=== PATIENT | male | born 1955 | race Two or more races ===

== ENCOUNTER 2017-01-29 05:18 | Emergency (ER) | payer MEDICAID ==
[~2017-01-29] VITALS: Ht 157.5 cm; Wt 85.3 kg
[2017-01-29 06:43] LABS: Basophils # (auto) 0.1 uL; Basophils % (auto) 1.8 % (0.0-2.0); Eosinophils # (auto) 0.3 uL; Eosinophils % (auto) 4.2 % (0.0-7.0); Hematocrit 34.5 % (41.0-53.0); Hemoglobin 11.7 g/dL (13.5-17.5); Lymphocytes # (auto) 0.8 uL; Lymphocytes % (auto) 12.8 % (10.0-50.0); Mean Corpuscular Hemoglobin 32.7 pg (28.0-32.0); Mean Corpuscular Hgb Conc. 33.9 g/dL (32.0-36.0); Mean Corpuscular Volume 96.6 fL (80.0-100.0); Mean Platelet Volume 8.7 fL (6.9-10.8); Monocytes # (auto) 0.3 uL; Monocytes % (auto) 4.8 % (0.0-12.0); Neutrophils # (auto) 4.8 uL; Neutrophils % (auto) 76.4 % (37.0-80.0); Nucleated Red Blood Cells % 0.1 %; Platelet Count (auto) 120 10^3/uL (140-450); White Blood Cell 6.3 10^3/uL (4.4-10.8)
[2017-01-29 07:01] LABS: Albumin 3.4 g/dL (3.4-5.0); Anion Gap 11 (5-15); Aspartate Aminotransferase 35 U/L (15-37); BUN/Creatinine Ratio 5.7; Blood Urea Nitrogen 51 mg/dL (7-18); Calcium 8.6 mg/dL (8.5-10.1); Carbon Dioxide 25 mmol/L (21-32); Chloride 99 mmol/L (98-107); GFR African American 8 mL/min; GFR Non-African American 6 mL/min; Glucose 169 mg/dL (74-106); Potassium 4.1 mmol/L (3.5-5.1); Sodium 135 mmol/L (136-145)
[2017-01-29 07:07] LABS: Alkaline Phosphatase 69 U/L (45-117); Bilirubin, Total 0.5 mg/dL (0.2-1.0); Total Protein 7.7 g/dL (6.4-8.2)
[2017-01-29 08:22] VITALS: BP 93/47
[2017-01-29 08:28] LABS: Temperature: 22.8 C (20.0-25.0)
== END 2017-01-29 09:40 | disposition home or self-care (01) ==
LOC: EDBD 05:18 → EDSEX 05:21 → ER 05:21
DX: R41.82 Altered mental status, unspecified (principal); E11.649 Type 2 diabetes mellitus with hypoglycemia without coma; G93.41 Metabolic encephalopathy; N18.9 Chronic kidney disease, unspecified; I12.9 Hypertensive chronic kidney disease with stage 1 through stage 4 chronic kidney disease, or unspecified chronic kidney disease; D63.8 Anemia in other chronic diseases classified elsewhere; E11.22 Type 2 diabetes mellitus with diabetic chronic kidney disease; E87.70 Fluid overload, unspecified; Z79.4 Long term (current) use of insulin; Z99.2 Dependence on renal dialysis
CPT/HCPCS: 36415; 80053; 82962; 83880; 84484; 85025; 93005

== ENCOUNTER 2018-06-10 15:54 | Inpatient (IN) | payer MEDICAID | END 2018-06-12 21:29 | disposition home or self-care (01) | LOC: TELE-EAST 22:24 → ER 15:54 → TELE 20:55 → TELE-EAST 22:24 | DX: R55 Syncope and collapse (principal); E11.22 Type 2 diabetes mellitus with diabetic chronic kidney disease; E11.649 Type 2 diabetes mellitus with hypoglycemia without coma; I12.0 Hypertensive chronic kidney disease with stage 5 chronic kidney disease or end stage renal disease; N18.6 End stage renal disease; I25.9 Chronic ischemic heart disease, unspecified; Z99.2 Dependence on renal dialysis ==

== ENCOUNTER 2019-03-07 20:51 | Emergency (ER) | payer MEDICAID ==
[~2019-03-07] VITALS: Ht 160 cm; Wt 72.6 kg
[~2019-03-07 20:51] MED LIST: ASPI-404 PO; CALC667C PO; FOLI1TAB6 PO; INSU70IN3 SC; SUCR5CHW PO
[2019-03-07 22:15] LABS: Basophils # (auto) 0.1 uL; Basophils % (auto) 2.6 % (0.0-2.0); Eosinophils # (auto) 0.3 uL; Eosinophils % (auto) 6.5 % (0.0-7.0); Hematocrit 31.9 % (41.0-53.0); Lymphocytes # (auto) 1.2 uL; Lymphocytes % (auto) 24.2 % (10.0-50.0); Mean Corpuscular Hemoglobin 32.2 pg (28.0-32.0); Mean Corpuscular Hgb Conc. 34.6 g/dL (32.0-36.0); Monocytes # (auto) 0.5 uL; Monocytes % (auto) 9.9 % (0.0-12.0); Neutrophils # (auto) 2.8 uL; Neutrophils % (auto) 56.8 % (37.0-80.0); Platelet Count (auto) 100 10^3/uL (140-450); Red Blood Cells 3.43 10^6/uL (4.5-5.90); Red Cell Distribution Width 13.5 % (11.8-14.3)
[2019-03-07 22:36] LABS: INR 1.11 (0.9-1.15); Partial Thromboplastin Time 26.6 sec (23.64-32.05)
[2019-03-07 22:37] LABS: Potassium 3.6 mmol/L (3.5-5.1)
[2019-03-07 22:46] LABS: Albumin 3.5 g/dL (3.4-5.0); Bilirubin, Total 0.7 mg/dL (0.2-1.0); Calcium 9.2 mg/dL (8.5-10.1); Magnesium 2.2 mg/dL (1.6-2.6); Total Protein 7.7 g/dL (6.4-8.2)
[2019-03-08] MEDS ORDERED: ACETAMINOPHEN 325 MG TAB PO ONE (00:15)
[2019-03-08] MEDS ORDERED: FUROSEMIDE 40 MG/4 ML VIAL IV ONE (00:45)
[2019-03-08] MEDS ORDERED: cefTRIAXone 1GM/50ML D5W 50 ML IV ONE (01:30)
[2019-03-08] MEDS ORDERED: AZITHROMYCIN 250 MG TAB PO ONE (01:30)
[2019-03-08] MEDS ORDERED: ALBUTEROL SULF 2.5 MG/0.5ML(0.5%) NEB SOLN NEB ONE (01:30)
[2019-03-08] MEDS ORDERED: IPRATROPIUM BROM 0.5 MG/2.5ML INH SOL NEB ONE (01:30)
[2019-03-08 02:01] VITALS: BP 183/87
== END 2019-03-08 04:31 | disposition home or self-care (01) ==
LOC: ER 20:56
DX: J06.9 Acute upper respiratory infection, unspecified (principal); E11.22 Type 2 diabetes mellitus with diabetic chronic kidney disease; I12.0 Hypertensive chronic kidney disease with stage 5 chronic kidney disease or end stage renal disease; N18.6 End stage renal disease; Z86.73 Personal history of transient ischemic attack (TIA), and cerebral infarction without residual deficits
CPT/HCPCS: 36415; 71045; 80053; 82962; 83735; 83880; 84484; 85025; 85610; 85730; 93005; 94640; 96365; 96375; 99284; J0696; J1940; J7611; J7644

== ENCOUNTER 2021-06-28 16:14 | Inpatient (IN) | payer MEDICAID ==
[~2021-06-28] VITALS: Ht 162.6 cm; Wt 58.9 kg
[~2021-06-28 16:14] MED LIST changes: -ASPI-404 PO; +ASPI-543 PO
[2021-06-28 18:41] LABS: Basophils # (auto) 0.1 10 ^3/uL (0-0.2); Eosinophils # (auto) 0 10 ^3/uL (0-0.8); Hemoglobin 11.7 g/dL (13.5-17.5); Lymphocytes # (auto) 0.6 10 ^3/uL (0.4-5.4); Lymphocytes % (auto) 10.1 % (10.0-50.0); Mean Corpuscular Hemoglobin 29.8 pg (28.0-32.0); Mean Corpuscular Hgb Conc. 33.4 g/dL (32.0-36.0); Mean Corpuscular Volume 89.5 fL (80.0-100.0); Monocytes # (auto) 0.6 10 ^3/uL (0-1.3); Monocytes % (auto) 9.8 % (0.0-12.0); Neutrophils # (auto) 4.6 10 ^3/uL (1.6-8.6); Neutrophils % (auto) 79.1 % (37.0-80.0); Nucleated Red Blood Cells % 0.1 %; Red Blood Cells 3.91 10^6/uL (4.5-5.90); Red Cell Distribution Width 15.1 % (11.8-14.3); White Blood Cell 5.8 10^3/uL (4.4-10.8)
[2021-06-28 19:03] LABS: Albumin 3.1 g/dL (3.4-5.0); BUN/Creatinine Ratio 4.7; Calcium 8.9 mg/dL (8.5-10.1); Potassium 3.7 mmol/L (3.5-5.1)
[2021-06-28 19:06] LABS: Bilirubin, Total 1.1 mg/dL (0.2-1.0); Total Protein 8.1 g/dL (6.4-8.2)
[2021-06-28] MEDS ORDERED: HYDROcodone-ACET 5/325MG TAB PO PRN (22:15)
[2021-06-28] MEDS ORDERED: ACETAMINOPHEN 325 MG TAB PO PRN (22:15)
[2021-06-28] MEDS ORDERED: DEXTROSE (50%) 50ML SYRG IV PRN (22:15)
[2021-06-28] MEDS ORDERED: ONDANSETRON HCL 4 MG/2 ML VIAL IV PRN (22:15)
[2021-06-28] MEDS ORDERED: MORPHINE SULFATE INJECTION 2 MG/ML SYRG IV PRN (23:30)
[2021-06-28] MEDS ORDERED: NITROGLYCERIN 0.4 MG SL TAB SL PRN (23:30)
[2021-06-29] VITALS (7 sets, daily range): BP systolic 112–141; BP diastolic 52–77
[2021-06-29] MEDS: LACTULOSE 20Gm/30ML SOLN PO SCH ×5 (02:15→17:23)
[2021-06-29] MEDS: SODIUM CHLOR 0.9% PF (SALINE LOCK) 10ML VIAL/SYR IV SCH ×3 (05:20→22:05)
[2021-06-29] MEDS: InsuLIN REG 1unit/0.01ml Soln (100units/ml) SC SCH ×3 (06:03→17:21)
[2021-06-29] MEDS: ACCU-CHEK COMFORT CURVE STRIP VI SCH ×4 (06:03→22:06)
[2021-06-29 06:39] LABS: Basophils # (auto) 0.1 10 ^3/uL (0-0.2); Basophils % (auto) 1.1 % (0.0-2.0); Eosinophils # (auto) 0.1 10 ^3/uL (0-0.8); Eosinophils % (auto) 1.3 % (0.0-7.0); Hematocrit 33.9 % (41.0-53.0); Hemoglobin 11.4 g/dL (13.5-17.5); Lymphocytes # (auto) 0.8 10 ^3/uL (0.4-5.4); Mean Corpuscular Hemoglobin 30.3 pg (28.0-32.0); Mean Corpuscular Hgb Conc. 33.8 g/dL (32.0-36.0); Mean Corpuscular Volume 89.7 fL (80.0-100.0); Monocytes # (auto) 0.6 10 ^3/uL (0-1.3); Monocytes % (auto) 13.6 % (0.0-12.0); Neutrophils # (auto) 3.2 10 ^3/uL (1.6-8.6); Nucleated Red Blood Cells % 0.1 %; Red Blood Cells 3.78 10^6/uL (4.5-5.90); Red Cell Distribution Width 14.9 % (11.8-14.3); White Blood Cell 4.7 10^3/uL (4.4-10.8)
[2021-06-29 06:50] LABS: Albumin 2.7 g/dL (3.4-5.0); Calcium 8.8 mg/dL (8.5-10.1); Potassium 3.7 mmol/L (3.5-5.1)
[2021-06-29 06:53] LABS: Bilirubin, Total 0.9 mg/dL (0.2-1.0); Total Protein 7.4 g/dL (6.4-8.2)
[2021-06-29] MEDS: ASPirin 81 mg TAB PO SCH (09:31)
[2021-06-29] MEDS: SEVELAMER 800 MG TAB PO SCH ×3 (09:31→17:23)
[2021-06-29] MEDS: B-COMPLEX W/ C & FOLIC ACID(NEPHROVITE TAB) PO SCH (09:32)
[2021-06-29] MEDS: FAMOTIDINE (10MG/ML) 2ML VL IV SCH (09:32)
[2021-06-29] MEDS ORDERED: HEPARIN SODIUM (PORCINE) 5000 UNITS/ML 1ML VIAL SC SCH (10:00)
[2021-06-29] MEDS ORDERED: InsuLIN REG 1unit/0.01ml Soln (100units/ml) SC SCH (22:00)
[2021-06-29] MEDS: METOPROLOL TARTRATE 25 MG TAB PO SCH (22:07)
[2021-06-30] MEDS: InsuLIN REG 1unit/0.01ml Soln (100units/ml) SC SCH ×4 (06:06→22:15)
[2021-06-30] MEDS: ACCU-CHEK COMFORT CURVE STRIP VI SCH ×4 (06:06→22:18)
[2021-06-30] MEDS: SODIUM CHLOR 0.9% PF (SALINE LOCK) 10ML VIAL/SYR IV SCH ×2 (06:06→15:45)
[2021-06-30] MEDS ORDERED: DEXTROSE (50%) 50ML SYRG IV PRN (08:00)
[2021-06-30 08:34] LABS: Cholesterol 92 mg/dL (< 200); HDL Cholesterol 29 mg/dL (40-59); LDL Cholesterol 49 mg/dL (< 100); Triglycerides 93 mg/dL (< 150)
[2021-06-30] MEDS: SEVELAMER 800 MG TAB PO SCH ×3 (08:39→18:32)
[2021-06-30] MEDS: B-COMPLEX W/ C & FOLIC ACID(NEPHROVITE TAB) PO SCH (08:39)
[2021-06-30] MEDS: METOPROLOL TARTRATE 25 MG TAB PO SCH ×2 (08:39→22:18)
[2021-06-30] MEDS: ASPirin 81 mg TAB PO SCH (08:40)
[2021-06-30 09:00] VITALS: BP 127/70
[2021-06-30 12:52] VITALS: BP 124/75
[2021-06-30 17:18] VITALS: BP 127/82
[2021-06-30 20:00] VITALS: BP 127/70
[2021-06-30 22:00] VITALS: BP 119/68
[2021-07-01] MEDS: SODIUM CHLOR 0.9% PF (SALINE LOCK) 10ML VIAL/SYR IV SCH ×4 (04:46→21:56)
[2021-07-01 05:00] VITALS: BP 110/59
[2021-07-01] MEDS: InsuLIN REG 1unit/0.01ml Soln (100units/ml) SC SCH ×4 (05:15→21:56)
[2021-07-01] MEDS: ACCU-CHEK COMFORT CURVE STRIP VI SCH ×4 (05:17→21:56)
[2021-07-01] MEDS: SEVELAMER 800 MG TAB PO SCH ×3 (08:00→18:30)
[2021-07-01 08:30] VITALS: BP 117/63
[2021-07-01 08:53] VITALS: BP 118/63
[2021-07-01] MEDS: B-COMPLEX W/ C & FOLIC ACID(NEPHROVITE TAB) PO SCH ×2 (09:32→11:18)
[2021-07-01] MEDS: METOPROLOL TARTRATE 25 MG TAB PO SCH ×3 (09:32→22:03)
[2021-07-01] MEDS: ASPirin 81 mg TAB PO SCH ×2 (09:32→11:18)
[2021-07-01 10:42] LABS: Basophils # (auto) 0.1 10 ^3/uL (0-0.2); Basophils % (auto) 1.2 % (0.0-2.0); Eosinophils # (auto) 0.3 10 ^3/uL (0-0.8); Eosinophils % (auto) 4.5 % (0.0-7.0); Hematocrit 35.9 % (41.0-53.0); Lymphocytes # (auto) 0.8 10 ^3/uL (0.4-5.4); Lymphocytes % (auto) 13.4 % (10.0-50.0); Mean Corpuscular Hgb Conc. 33.4 g/dL (32.0-36.0); Mean Corpuscular Volume 89.8 fL (80.0-100.0); Monocytes # (auto) 0.5 10 ^3/uL (0-1.3); Monocytes % (auto) 8.8 % (0.0-12.0); Neutrophils # (auto) 4.3 10 ^3/uL (1.6-8.6); Neutrophils % (auto) 72.1 % (37.0-80.0); Nucleated Red Blood Cells % 0.1 %; Red Cell Distribution Width 15.1 % (11.8-14.3)
[2021-07-01 10:44] LABS: Potassium 3.7 mmol/L (3.5-5.1)
[2021-07-01 10:52] LABS: Albumin 2.6 g/dL (3.4-5.0); BUN/Creatinine Ratio 5.5; Bilirubin, Total 0.6 mg/dL (0.2-1.0); Calcium 8.6 mg/dL (8.5-10.1); Total Protein 7.4 g/dL (6.4-8.2)
[2021-07-01] MEDS: FAMOTIDINE (10MG/ML) 2ML VL IV SCH (11:18)
[2021-07-01 11:24] LABS: INR 1.17 (0.9-1.15); Partial Thromboplastin Time 29.1 sec (23.6-33.0)
[2021-07-01 13:00] VITALS: BP 127/59
[2021-07-01 16:47] VITALS: BP 129/56
[2021-07-01 22:00] VITALS: BP 103/60
[2021-07-02] VITALS (16 sets, daily range): BP systolic 120–179; BP diastolic 40–77
[2021-07-02] MEDS: InsuLIN REG 1unit/0.01ml Soln (100units/ml) SC SCH ×4 (06:21→22:00)
[2021-07-02] MEDS: SODIUM CHLOR 0.9% PF (SALINE LOCK) 10ML VIAL/SYR IV SCH ×3 (06:21→22:45)
[2021-07-02] MEDS: ACCU-CHEK COMFORT CURVE STRIP VI SCH ×4 (06:21→22:45)
[2021-07-02] MEDS ORDERED: SODIUM CHL 0.9% 1000 ML BAG XX ONE (07:00)
[2021-07-02] MEDS: SEVELAMER 800 MG TAB PO SCH ×3 (08:00→18:41)
[2021-07-02] MEDS: B-COMPLEX W/ C & FOLIC ACID(NEPHROVITE TAB) PO SCH (10:00)
[2021-07-02] MEDS: ASPirin 81 mg TAB PO SCH (10:28)
[2021-07-02] MEDS: METOPROLOL TARTRATE 25 MG TAB PO SCH ×2 (10:29→22:45)
[2021-07-02] MEDS ORDERED: ANGIOMAX 250 MG VIAL IV ONE (13:41)
[2021-07-02] MEDS ORDERED: LIDOCAINE 2%HCL (LOCAL ANESTH.) INJ 10ml MDV ONE (13:41)
[2021-07-02] MEDS ORDERED: MIDAZOLAM HCL 2MG/2ML 2ml VIAL (1mg/ml) ONE (13:41)
[2021-07-02] MEDS ORDERED: SODIUM CHL 0.9% 0 ML ONE (13:41)
[2021-07-02] MEDS ORDERED: fentaNYL CITRATE 100 MCG/2 ML VL ONE (13:41)
[2021-07-02] MEDS ORDERED: VERAPAMIL 2.5MG/ML INJ 2ML VIAL IV ONE (13:41)
[2021-07-02] MEDS ORDERED: IODIXANOL 320MG/ML 100ML BTL IV ONE (13:42)
[2021-07-02] MEDS ORDERED: HEPARIN SODIUM (PORCINE) 5000 UNITS/ML 1ML VIAL ONE (13:46)
[2021-07-03 05:00] VITALS: BP 132/79
[2021-07-03] MEDS: SODIUM CHLOR 0.9% PF (SALINE LOCK) 10ML VIAL/SYR IV SCH ×3 (06:11→22:19)
[2021-07-03] MEDS: ACCU-CHEK COMFORT CURVE STRIP VI SCH ×4 (06:11→22:20)
[2021-07-03 06:12] LABS: Basophils # (auto) 0.1 10 ^3/uL (0-0.2); Basophils % (auto) 1.2 % (0.0-2.0); Eosinophils # (auto) 0.1 10 ^3/uL (0-0.8); Eosinophils % (auto) 0.7 % (0.0-7.0); Hematocrit 38.3 % (41.0-53.0); Lymphocytes # (auto) 0.8 10 ^3/uL (0.4-5.4); Lymphocytes % (auto) 10.1 % (10.0-50.0); Mean Corpuscular Hemoglobin 30.1 pg (28.0-32.0); Mean Corpuscular Hgb Conc. 33.8 g/dL (32.0-36.0); Monocytes # (auto) 0.6 10 ^3/uL (0-1.3); Monocytes % (auto) 8.4 % (0.0-12.0); Neutrophils # (auto) 5.9 10 ^3/uL (1.6-8.6); Neutrophils % (auto) 79.6 % (37.0-80.0); Red Blood Cells 4.31 10^6/uL (4.5-5.90); White Blood Cell 7.4 10^3/uL (4.4-10.8)
[2021-07-03] MEDS: InsuLIN REG 1unit/0.01ml Soln (100units/ml) SC SCH ×4 (06:15→22:29)
[2021-07-03 06:27] LABS: BUN/Creatinine Ratio 5.1; Calcium 8.5 mg/dL (8.5-10.1); Magnesium 2.3 mg/dL (1.6-2.6); Potassium 3.9 mmol/L (3.5-5.1)
[2021-07-03 08:39] VITALS: BP 134/62
[2021-07-03] MEDS: ASPirin 81 mg TAB PO SCH (09:04)
[2021-07-03] MEDS: SEVELAMER 800 MG TAB PO SCH ×3 (09:04→17:17)
[2021-07-03] MEDS: METOPROLOL TARTRATE 25 MG TAB PO SCH ×2 (09:05→22:30)
[2021-07-03] MEDS: B-COMPLEX W/ C & FOLIC ACID(NEPHROVITE TAB) PO SCH (09:05)
[2021-07-03 12:54] VITALS: BP 159/81
[2021-07-03 16:48] VITALS: BP 135/116
[2021-07-03 22:00] VITALS: BP 138/93
[2021-07-04 05:00] VITALS: BP 102/62
[2021-07-04] MEDS: ACCU-CHEK COMFORT CURVE STRIP VI SCH ×3 (06:15→17:36)
[2021-07-04] MEDS: SODIUM CHLOR 0.9% PF (SALINE LOCK) 10ML VIAL/SYR IV SCH ×2 (06:15→14:00)
[2021-07-04] MEDS: InsuLIN REG 1unit/0.01ml Soln (100units/ml) SC SCH ×3 (06:15→17:37)
[2021-07-04] MEDS ORDERED: SODIUM CHL 0.9% 1000 ML BAG XX ONE (07:00)
[2021-07-04] MEDS: B-COMPLEX W/ C & FOLIC ACID(NEPHROVITE TAB) PO SCH (07:48)
[2021-07-04] MEDS: SEVELAMER 800 MG TAB PO SCH ×3 (07:48→17:37)
[2021-07-04] MEDS: ASPirin 81 mg TAB PO SCH (07:49)
[2021-07-04] MEDS: METOPROLOL TARTRATE 25 MG TAB PO SCH (08:30)
[2021-07-04 09:00] VITALS: BP 131/70
[2021-07-04 13:00] VITALS: BP 121/67
[2021-07-04] MEDS ORDERED: LORazepam 2MG/ML-1ML VIAL IV PRN ×2 (13:15→13:30)
[2021-07-04 16:10] LABS: Folate (Folic Acid) > 24.00 ng/mL (5.38-24)
[2021-07-04] MEDS ORDERED: MET25T PO (16:12)
[2021-07-04 16:35] VITALS: BP 147/48
[2021-07-04 17:00] VITALS: BP 125/74
== END 2021-07-04 19:25 | disposition home health service (06) | DRG 192 ==
LOC: EDBD 16:14 → ER 16:30 → TELE 23:30 → TELE-WESTW 23:55
PROVIDERS: ADMIT Nurse Practitioner Family; ATTEND Internal Medicine
PROC: 5A1D70Z Performance of Urinary Filtration, Intermittent, Less than 6 Hours Per Day (ICD-10-PCS; 2021-06-29)
PROC: 4A023N7 Measurement of Cardiac Sampling and Pressure, Left Heart, Percutaneous Approach (ICD-10-PCS; principal; 2021-07-02)
PROC: B211YZZ Fluoroscopy of Multiple Coronary Arteries using Other Contrast (ICD-10-PCS; 2021-07-02)
PROC: B215YZZ Fluoroscopy of Left Heart using Other Contrast (ICD-10-PCS; 2021-07-02)
PROC: 4A033BC Measurement of Arterial Pressure, Coronary, Percutaneous Approach (ICD-10-PCS; 2021-07-02)
PROC: 5A1D70Z Performance of Urinary Filtration, Intermittent, Less than 6 Hours Per Day (ICD-10-PCS; 2021-07-02)
PROC: 5A1D70Z Performance of Urinary Filtration, Intermittent, Less than 6 Hours Per Day (ICD-10-PCS; 2021-07-04)
DX: I13.2 Hypertensive heart and chronic kidney disease with heart failure and with stage 5 chronic kidney disease, or end stage renal disease (principal); J96.01 Acute respiratory failure with hypoxia; G93.41 Metabolic encephalopathy; G93.1 Anoxic brain damage, not elsewhere classified; D69.6 Thrombocytopenia, unspecified; I21.A1 Myocardial infarction type 2; E87.1 Hypo-osmolality and hyponatremia; N18.6 End stage renal disease; D63.8 Anemia in other chronic diseases classified elsewhere; E11.22 Type 2 diabetes mellitus with diabetic chronic kidney disease; I50.43 Acute on chronic combined systolic (congestive) and diastolic (congestive) heart failure; E78.5 Hyperlipidemia, unspecified; G62.9 Polyneuropathy, unspecified; I07.1 Rheumatic tricuspid insufficiency; Z20.822 Contact with and (suspected) exposure to COVID-19; I25.10 Atherosclerotic heart disease of native coronary artery without angina pectoris; Z83.3 Family history of diabetes mellitus; Z86.73 Personal history of transient ischemic attack (TIA), and cerebral infarction without residual deficits; Z88.8 Allergy status to other drugs, medicaments and biological substances; Z99.2 Dependence on renal dialysis
CPT/HCPCS: 36415; 70450; 70551; 71045; 80048; 80053; 80061; 80320; 82140; 82607; 82746; 82962; 83036; 83735; 83880; 84443; 84484; 85025; 85610; 85730; 86850; 86900; 86901; 87081; 87340; 90935; 93005; 93306; 93458; 93571; 95819; 96372; 99152; 99153; 99291; G0378; J1642; J1815; J2001; J2250; J3490; Q9967

== ENCOUNTER 2021-07-20 15:49 | Inpatient (IN) | payer MEDICAID ==
[~2021-07-20] VITALS: Ht 172.7 cm; Wt 62.5 kg
[~2021-07-20 15:49] MED LIST changes: +MET25T PO
[2021-07-20 16:52] LABS: Basophils # (auto) 0.1 10 ^3/uL (0-0.2); Basophils % (auto) 1.4 % (0.0-2.0); Eosinophils # (auto) 0.2 10 ^3/uL (0-0.8); Eosinophils % (auto) 2.4 % (0.0-7.0); Hematocrit 36.6 % (41.0-53.0); Hemoglobin 12.3 g/dL (13.5-17.5); Lymphocytes # (auto) 0.6 10 ^3/uL (0.4-5.4); Lymphocytes % (auto) 9.8 % (10.0-50.0); Mean Corpuscular Hgb Conc. 33.7 g/dL (32.0-36.0); Monocytes # (auto) 0.6 10 ^3/uL (0-1.3); Monocytes % (auto) 8.5 % (0.0-12.0); Neutrophils # (auto) 5.1 10 ^3/uL (1.6-8.6); Neutrophils % (auto) 77.9 % (37.0-80.0); Red Blood Cells 4.11 10^6/uL (4.5-5.90); Red Cell Distribution Width 15.2 % (11.8-14.3); White Blood Cell 6.6 10^3/uL (4.4-10.8)
[2021-07-20 17:12] LABS: Albumin 2.9 g/dL (3.4-5.0); Calcium 8.6 mg/dL (8.5-10.1); Potassium 4.4 mmol/L (3.5-5.1)
[2021-07-20 17:16] LABS: BUN/Creatinine Ratio 6.5; Bilirubin, Total 0.8 mg/dL (0.2-1.0); Total Protein 8.6 g/dL (6.4-8.2)
[2021-07-20] MEDS ORDERED: DOCUSATE SOD 100 MG CAP PO PRN (21:30)
[2021-07-20] MEDS ORDERED: ACETAMINOPHEN 325 MG TAB PO PRN (21:30)
[2021-07-20] MEDS ORDERED: ONDANSETRON HCL 4 MG/2 ML VIAL IV PRN (21:30)
[2021-07-20] MEDS ORDERED: HYDROcodone-ACET 5/325MG TAB PO PRN (21:30)
[2021-07-20] MEDS ORDERED: DEXTROSE (50%) 50ML SYRG IV PRN (21:30)
[2021-07-20] MEDS ORDERED: hydrALAZINE HCL 20 MG/ML VL IV PRN (21:30)
[2021-07-20] MEDS: SODIUM CHLOR 0.9% PF (SALINE LOCK) 10ML VIAL/SYR IV SCH (22:00)
[2021-07-20] MEDS: FAMOTIDINE (10MG/ML) 2ML VL IV SCH (22:16)
[2021-07-20] MEDS: CARVEDILOL 12.5 MG TAB PO SCH (22:17)
[2021-07-20] MEDS ORDERED: NITROGLYCERIN 0.4 MG SL TAB SL PRN (23:15)
[2021-07-20] MEDS ORDERED: MORPHINE SULFATE INJ 2 MG/ml SYRG IV PRN (23:15)
[2021-07-21] MEDS: ACCU-CHEK COMFORT CURVE STRIP VI SCH ×6 (04:00→20:00)
[2021-07-21] MEDS: InsuLIN REG 1unit/0.01ml Soln (100units/ml) SC SCH ×6 (04:00→20:00)
[2021-07-21] MEDS: SODIUM CHLOR 0.9% PF (SALINE LOCK) 10ML VIAL/SYR IV SCH ×3 (05:41→22:00)
[2021-07-21 07:33] LABS: Basophils # (auto) 0.1 10 ^3/uL (0-0.2); Basophils % (auto) 1.9 % (0.0-2.0); Eosinophils # (auto) 0.1 10 ^3/uL (0-0.8); Eosinophils % (auto) 1.7 % (0.0-7.0); Hematocrit 32.7 % (41.0-53.0); Hemoglobin 11.1 g/dL (13.5-17.5); Lymphocytes # (auto) 0.7 10 ^3/uL (0.4-5.4); Lymphocytes % (auto) 15.2 % (10.0-50.0); Mean Corpuscular Hemoglobin 30.2 pg (28.0-32.0); Mean Corpuscular Hgb Conc. 33.9 g/dL (32.0-36.0); Mean Corpuscular Volume 89.2 fL (80.0-100.0); Monocytes # (auto) 0.6 10 ^3/uL (0-1.3); Neutrophils # (auto) 3.3 10 ^3/uL (1.6-8.6); Neutrophils % (auto) 68.2 % (37.0-80.0); Red Blood Cells 3.67 10^6/uL (4.5-5.90); Red Cell Distribution Width 15.3 % (11.8-14.3); White Blood Cell 4.8 10^3/uL (4.4-10.8)
[2021-07-21 07:50] LABS: Albumin 2.3 g/dL (3.4-5.0); Calcium 8.6 mg/dL (8.5-10.1); Potassium 4.2 mmol/L (3.5-5.1)
[2021-07-21 07:59] LABS: BUN/Creatinine Ratio 7.2; Total Protein 6.9 g/dL (6.4-8.2)
[2021-07-21] MEDS ORDERED: SEVELAMER 800 MG TAB PO SCH (08:00)
[2021-07-21 09:55] VITALS: BP 105/58
[2021-07-21 10:00] VITALS: BP 105/58
[2021-07-21] MEDS: ASPirin 81 mg TAB PO SCH (11:02)
[2021-07-21] MEDS: B-COMPLEX W/ C & FOLIC ACID(NEPHROVITE TAB) PO SCH (11:02)
[2021-07-21 13:00] VITALS: BP 114/54
[2021-07-21] MEDS ORDERED: ASPirin 81 mg TAB PO ONE ×2 (13:30)
[2021-07-21] MEDS ORDERED: CLOPIDOGREL 300 MG TAB PO ONE (13:30)
[2021-07-21] MEDS: CARVEDILOL 12.5 MG TAB PO SCH ×2 (14:27→22:18)
[2021-07-21 17:00] VITALS: BP 103/54
[2021-07-21] MEDS: FUROSEMIDE 40 MG/4 ML VIAL IV SCH (17:40)
[2021-07-21 22:00] VITALS: BP 107/66
[2021-07-21] MEDS ORDERED: LORazepam 2MG/ML-1ML VIAL IV PRN (23:30)
[2021-07-22] MEDS: InsuLIN REG 1unit/0.01ml Soln (100units/ml) SC SCH ×6 (03:40→22:00)
[2021-07-22] MEDS: ACCU-CHEK COMFORT CURVE STRIP VI SCH ×6 (03:40→22:00)
[2021-07-22 05:00] VITALS: BP 96/51
[2021-07-22] MEDS: SODIUM CHLOR 0.9% PF (SALINE LOCK) 10ML VIAL/SYR IV SCH ×3 (06:00→22:00)
[2021-07-22] MEDS: FUROSEMIDE 40 MG/4 ML VIAL IV SCH ×2 (06:40→18:16)
[2021-07-22] MEDS ORDERED: SODIUM CHL 0.9% 1000 ML BAG XX ONE (07:00)
[2021-07-22 08:00] VITALS: BP 96/51
[2021-07-22 09:00] VITALS: BP 101/51
[2021-07-22] MEDS ORDERED: DEXTROSE (50%) 50ML SYRG IV PRN (11:15)
[2021-07-22 13:00] VITALS: BP 118/65
[2021-07-22] MEDS ORDERED: VANCOMYCIN PER PHARMACY 0 MG IV SCH (16:45)
[2021-07-22] MEDS ORDERED: cefTRIAXone 1GM/50ML D5W 50 ML IV ONE (16:45)
[2021-07-22 17:00] VITALS: BP 126/69
[2021-07-22] MEDS ORDERED: VANCOMYCIN 1GM/250ML 250 ML IV ONE (17:00)
[2021-07-22] MEDS: CLOPIDOGREL BISULFATE 75 MG TAB PO SCH (17:36)
[2021-07-22] MEDS: ASPirin 81 mg TAB PO SCH (17:37)
[2021-07-22] MEDS: B-COMPLEX W/ C & FOLIC ACID(NEPHROVITE TAB) PO SCH (17:37)
[2021-07-22] MEDS: CARVEDILOL 12.5 MG TAB PO SCH ×2 (17:37→20:56)
[2021-07-22] MEDS: FAMOTIDINE (10MG/ML) 2ML VL IV SCH (17:37)
[2021-07-22 22:00] VITALS: BP 136/71
[2021-07-23 04:00] VITALS: BP 123/68
[2021-07-23] MEDS: SODIUM CHLOR 0.9% PF (SALINE LOCK) 10ML VIAL/SYR IV SCH ×2 (06:23→16:12)
[2021-07-23] MEDS: FUROSEMIDE 40 MG/4 ML VIAL IV SCH ×2 (06:26→17:58)
[2021-07-23] MEDS: ACCU-CHEK COMFORT CURVE STRIP VI SCH ×3 (06:35→17:59)
[2021-07-23] MEDS: InsuLIN REG 1unit/0.01ml Soln (100units/ml) SC SCH ×3 (06:35→18:00)
[2021-07-23 08:00] VITALS: BP 123/68
[2021-07-23 09:00] VITALS: BP 114/45
[2021-07-23] MEDS ORDERED: cefTRIAXone 1GM/50ML D5W 50 ML IV SCH (09:00)
[2021-07-23] MEDS: ASPirin 81 mg TAB PO SCH (09:43)
[2021-07-23] MEDS: CARVEDILOL 12.5 MG TAB PO SCH (09:43)
[2021-07-23] MEDS: B-COMPLEX W/ C & FOLIC ACID(NEPHROVITE TAB) PO SCH (09:44)
[2021-07-23] MEDS: CLOPIDOGREL BISULFATE 75 MG TAB PO SCH (09:44)
[2021-07-23 13:00] VITALS: BP 131/65
[2021-07-23] MEDS ORDERED: ATO40T PO (16:58)
[2021-07-23 17:00] VITALS: BP 120/52
[2021-07-23 17:04] VITALS: BP 131/65
[2021-07-23] MEDS ORDERED: LEVO500T31 PO (17:56)
[2021-07-24] MEDS ORDERED: SODIUM CHL 0.9% 1000 ML BAG XX ONE (07:00)
== END 2021-07-23 18:48 | disposition home or self-care (01) | DRG 194 ==
LOC: EDBD 15:49 → ER 15:53 → TELE 23:01 → TELE-EAST 07-21 10:04
PROVIDERS: ADMIT Nurse Practitioner Family; ATTEND Internal Medicine Nephrology
PROC: 5A1D70Z Performance of Urinary Filtration, Intermittent, Less than 6 Hours Per Day (ICD-10-PCS; principal; 2021-07-22)
DX: I13.2 Hypertensive heart and chronic kidney disease with heart failure and with stage 5 chronic kidney disease, or end stage renal disease (principal); G93.41 Metabolic encephalopathy; D69.6 Thrombocytopenia, unspecified; N18.6 End stage renal disease; D63.1 Anemia in chronic kidney disease; E83.39 Other disorders of phosphorus metabolism; E11.22 Type 2 diabetes mellitus with diabetic chronic kidney disease; E88.09 Other disorders of plasma-protein metabolism, not elsewhere classified; F03.90 Unspecified dementia, unspecified severity, without behavioral disturbance, psychotic disturbance, mood disturbance, and anxiety; I50.23 Acute on chronic systolic (congestive) heart failure; Z20.822 Contact with and (suspected) exposure to COVID-19; R09.02 Hypoxemia; E11.65 Type 2 diabetes mellitus with hyperglycemia; E78.5 Hyperlipidemia, unspecified; I49.9 Cardiac arrhythmia, unspecified; F17.200 Nicotine dependence, unspecified, uncomplicated; I25.10 Atherosclerotic heart disease of native coronary artery without angina pectoris; Z79.02 Long term (current) use of antithrombotics/antiplatelets; Z99.2 Dependence on renal dialysis; Z88.8 Allergy status to other drugs, medicaments and biological substances; Z83.3 Family history of diabetes mellitus; Z86.73 Personal history of transient ischemic attack (TIA), and cerebral infarction without residual deficits; Z79.4 Long term (current) use of insulin
CPT/HCPCS: 36415; 70450; 70551; 71045; 80053; 80061; 82565; 82962; 83880; 84100; 84439; 84484; 85025; 87040; 90935; 93005; 95819; 97116; 97163; 97530; G0378; J0696; J1815; J3490